=== PATIENT | male | born 1945 | race Caucasian/White ===

== ENCOUNTER 2017-01-12 13:41 | Emergency (ER) | payer MEDICARE ==
[~2017-01-12] VITALS: Ht 175.3 cm; Wt 120.0 kg
[2017-01-12 13:56] VITALS: BP 132/61; PULSE 69; RESP 17; TEMP 98.1; O2SAT 97
--- NOTE | 2017-01-12 14:53 | PD ---
HPI Chief Complaint: Syncope/Near-Syncope Time Seen by Provider: 14:51 Travel History International Travel<30 days: No Contact w/Intl Traveler<30days: No Traveled to known affect area: No History of Present Illness HPI Patient comes into the emergency department after having a near-syncopal episode. [place] he started having "black flashes" in front of his eyes. Patient states he eventually fell backwards and hit his head on the ground. Patient denies any loss of consciousness with this, chest pain, shortness of breath, headache, numbness or tingling anywhere, nausea, vomiting, fevers, loss of bowel or bladder, or pain anywhere. Patient denies any complaints currently. Patient reports he has something similar happen approximately 6-8 months ago. PFSH Past Medical History Hx Anticoagulant Therapy: Yes (baby aspirin) High Cholesterol: Yes Social History Tobacco Use: No Substance Use: No Allergies-Medications (Allergen,Severity, Reaction): Coded Allergies: No Known Allergies (Unverified , 01/12/17) Review of Systems Except as stated in HPI: all other systems reviewed are Neg Physical Exam Narrative GENERAL: Well-developed, overly nourished, in no acute distress, and non-ill appearing. SKIN: Focused skin assessment warm and dry. HEAD: Atraumatic. Normocephalic. EYES: Pupils equal and round. EOMI. No scleral icterus. No injection or drainage. ENT: No nasal bleeding or discharge. Mucous membranes pink and moist. NECK: Trachea midline. No JVD. Supple. No nuclear rigidity. CARDIOVASCULAR: Regular rate and rhythm. No murmur appreciated. RESPIRATORY: No accessory muscle use. No respiratory distress. Clear to auscultation. Breath sounds equal bilaterally. GASTROINTESTINAL: Abdomen soft, non-tender, nondistended. Hepatic and splenic margins not palpable. No pulsatile mass. MUSCULOSKELETAL: No obvious deformities. No clubbing. No cyanosis. No edema. Full range of motion. NEUROLOGICAL: Awake and alert. No obvious cranial nerve deficits. Motor grossly within normal limits. Normal speech. PSYCHIATRIC: Appropriate mood and affect; insight and judgment normal. Data Data Last Documented VS Vital Signs Date Time Temp Pulse Resp B/P Pulse Ox O2 Delivery O2 Flow Rate FiO2 01/12/17 15:56 18 98 Room Air 01/12/17 13:56 98.1 69 132/61 Orders Electrocardiogram (01/12/17 14:47) Complete Blood Count With Diff (01/12/17 14:47) Comprehensive Metabolic Panel (01/12/17 14:47) Ckmb (Isoenzyme) Profile (01/12/17 14:47) Troponin I (01/12/17 14:47) Act Partial Throm Time (Ptt) (01/12/17 14:47) Prothrombin Time / Inr (Pt) (01/12/17 14:47) Urinalysis - C+S If Indicated (01/12/17 14:47) Chest, Single Ap (01/12/17 14:47) Ct Brain W/O Iv Contrast(Rout) (01/12/17 14:47) Ct Cerv Spine W/O Contrast (01/12/17 14:47) Ecg Monitoring (01/12/17 14:47) Iv Access Insert/Monitor (01/12/17 14:47) Oximetry (01/12/17 14:47) Orthostatic Vital Signs (01/12/17 14:47) D-Dimer (01/12/17 16:34) Ct Pulmonary Angiogram (01/12/17 ) Labs Laboratory Tests Test 01/12/17 01/12/17 14:30 16:38 White Blood Count 7.3 TH/MM3 Red Blood Count 4.26 MIL/MM3 Hemoglobin 13.6 GM/DL Hematocrit 40.9 % Mean Corpuscular Volume 96.1 FL Mean Corpuscular Hemoglobin 31.9 PG Mean Corpuscular Hemoglobin 33.2 % Concent Red Cell Distribution Width 13.6 % Platelet Count 273 TH/MM3 Mean Platelet Volume 7.9 FL Neutrophils (%) (Auto) 57.3 % Lymphocytes (%) (Auto) 31.9 % Monocytes (%) (Auto) 9.1 % Eosinophils (%) (Auto) 1.4 % Basophils (%) (Auto) 0.3 % Neutrophils # (Auto) 4.2 TH/MM3 Lymphocytes # (Auto) 2.3 TH/MM3 Monocytes # (Auto) 0.7 TH/MM3 Eosinophils # (Auto) 0.1 TH/MM3 Basophils # (Auto) 0.0 TH/MM3 CBC Comment DIFF FINAL Differential Comment Prothrombin Time 10.5 SEC Prothromb Time International 1.0 RATIO Ratio Activated Partial 25.0 SEC Thromboplast Time D-Dimer Quantitative (PE/DVT) 2.30 MG/L FEU Sodium Level 142 MEQ/L Potassium Level 3.9 MEQ/L Chloride Level 108 MEQ/L Carbon Dioxide Level 22.8 MEQ/L Anion Gap 11 MEQ/L Blood Urea Nitrogen 12 MG/DL Creatinine 0.96 MG/DL Estimat Glomerular Filtration 77 ML/MIN Rate Random Glucose 73 MG/DL Calcium Level 8.4 MG/DL Total Bilirubin 0.5 MG/DL Aspartate Amino Transf 19 U/L (AST/SGOT) Alanine Aminotransferase 27 U/L (ALT/SGPT) Alkaline Phosphatase 64 U/L Total Creatine Kinase 83 U/L Troponin I LESS THAN 0.02 NG/ML Total Protein 6.5 GM/DL Albumin 3.3 GM/DL Urine Color YELLOW Urine Turbidity HAZY Urine pH 5.5 Urine Specific [place] 1.026 Urine Protein NEG mg/dL Urine Glucose (UA) NEG mg/dL Urine Ketones NEG mg/dL Urine Occult Blood NEG Urine Nitrite NEG Urine Bilirubin NEG Urine Urobilinogen LESS THAN 2.0 MG/DL Urine Leukocyte Esterase NEG Urine RBC LESS THAN 1 /hpf Urine WBC 3 /hpf Urine Squamous Epithelial 1 /hpf Cells Urine Mucus MANY /lpf Microscopic Urinalysis Comment CULT NOT INDICATED MDM Medical Decision Making Medical Screen Exam Complete: Yes Emergency Medical Condition: Yes Interpretation(s) EKG reviewed by Dr. Ramos shows normal sinus rhythm with ventricular rate of 68. No STEMI. Differential Diagnosis Syncope, near syncope, cranial hemorrhage, electrolyte abnormality, dehydration , acute coronary syndrome, other Narrative Course Patient presented with near syncope. There was no true syncope. The patient denied any symptoms of chest pain, SOB/difficulty breathing, palpitations or skipped heartbeats. The patient denied and headache. The patient denied any bloody or tarry stools. The patient has no significant risk factors and no significant co-morbidities. There was no evidence to suggest neurologic or cardiac etiology or GIB. The diagnosis and findings were discussed with the patient and the patient was instructed to follow up with their primary physician. Patient in no obvious distress upon re-evaluation. All pertinent laboratory/ Radiology result(s) discussed with patient/family including incidental finding of calcification of coronary arteries noted on CT. I discussed patient with Dr. Ramos, who saw and evaluated the patient and is in agreement with plan of care and disposition. Any questions/concerns in reference to patient diagnosis/ condition discussed and clarified prior to patient's discharge. Reinforced sheer importance of close follow up with patient's primary physician or primary care clinic. Instructed patient to return to ED immediately, if symptoms return/ worsen. Pt showed understanding of above instructions. Further instructions and recommendations were detailed in discharge paperwork. Pt ambulated without difficulty out of ED at discharge. Diagnosis Primary Impression: Near syncope Patient Instructions: General Instructions, Near Syncope (ED) Additional Instructions: Follow-up with your primary care physician as soon as possible for reevaluation. Drink plenty of non-caffeinated and nonalcoholic fluids. Return to the emergency department if symptoms get worse. Disposition: 01 DISCHARGE HOME Condition: Stable Yefri Chin Jan 12, 2017 14:53
[2017-01-12 15:09] LABS: AUTOMATED NEUTROPHIL # 4.2 TH/MM3 (1.8-7.7); BASOPHIL % 0.3 % (0.0-2.0); EOSINOPHIL # 0.1 TH/MM3 (0-0.4); EOSINOPHIL % 1.4 % (0.0-4.0); HEMATOCRIT 40.9 % (39.0-51.0); HEMO FLAGS DIFF FINAL; LYMPH % 31.9 % (9.0-44.0); LYMPHOCYTE # 2.3 TH/MM3 (1.0-4.8); MEAN CELL VOLUME 96.1 FL (80.0-100.0); MEAN CORPUSCULAR HEMOGLOBIN 31.9 PG (27.0-34.0); MEAN CORPUSCULAR HGB CONC 33.2 % (32.0-36.0); MONO % 9.1 % (0.0-8.0); NEUT % 57.3 % (16.0-70.0); PLATELET COUNT 273 TH/MM3 (150-450); RED BLOOD COUNT 4.26 MIL/MM3 (4.50-5.90); RED CELL DISTRIBUTION WIDTH 13.6 % (11.6-17.2); WHITE BLOOD COUNT 7.3 TH/MM3 (4.0-11.0)
[2017-01-12 15:24] LABS: ALT (GPT) 27 U/L (12-78); ANION GAP 11 MEQ/L (5-15); AST (GOT) 19 U/L (15-37); BICARBONATE 22.8 MEQ/L (21.0-32.0); BLOOD UREA NITROGEN 12 MG/DL (7-18); CHLORIDE 108 MEQ/L (98-107); GLOMERULAR FILTRATION RATE 77 ML/MIN (>89); POTASSIUM 3.9 MEQ/L (3.5-5.1); SODIUM (NA) 142 MEQ/L (136-145)
[2017-01-12 15:31] LABS: PROTHROMBIN TIME - PATIENT 10.5 SEC (9.8-11.6)
[2017-01-12 15:32] LABS: ALKALINE PHOSPHATASE 64 U/L (45-117); TOTAL BILIRUBIN ADULT 0.5 MG/DL (0.2-1.0)
[2017-01-12 15:34] LABS: CREATINE KINASE 83 U/L (39-308)
--- NOTE | 2017-01-12 16:03 | RADRPT ---
EXAM DATE/TIME: 01/12/2017 15:46 [facility] COMPARISON: No previous studies available for comparison. INDICATIONS : Near syncopal episode today with fall onto posterior head. RADIATION DOSE: 42.99 CTDIvol (mGy) MEDICAL HISTORY : None SURGICAL HISTORY : None. ENCOUNTER: Initial ACUITY: 1 day PAIN SCALE: 0/10 LOCATION: Bilateral head TECHNIQUE: Multiple contiguous axial images were obtained of the head. Using automated exposure control and adj ustment of the mA and/or kV according to patient size, radiation dose was kept as low as reasonably a chievable to obtain optimal diagnostic quality images. FINDINGS: CEREBRUM: The ventricles are normal for age. No evidence of midline shift, mass lesion, hemorrhage or acute in farction. No extra-axial fluid collections are seen. POSTERIOR FOSSA: The cerebellum and brainstem are intact. The 4th ventricle is midline. The cerebellopontine angle i s unremarkable. EXTRACRANIAL: The visualized portion of the orbits is intact. SKULL: The calvaria is intact. No evidence of skull fracture. CONCLUSION: No acute disease. Deandre Domínguez MD on January 12, 2017 at 16:01 Board Certified Radiologist. This report was verified electronically.
--- NOTE | 2017-01-12 16:07 | RADRPT ---
EXAM DATE/TIME: 01/12/2017 15:17 [facility] COMPARISON: No previous studies available for comparison. INDICATIONS : Syncope. MEDICAL HISTORY : None. SURGICAL HISTORY : None. ENCOUNTER: Initial ACUITY: 1 day PAIN SCORE: 0/10 LOCATION: Bilateral chest FINDINGS: The heart and mediastinal structures are normal. The pulmonary vascular pattern is also normal. The lungs are clear. CONCLUSION: 1. No acute cardiopulmonary disease. Deandre Domínguez MD on January 12, 2017 at 15:58 Board Certified Radiologist. This report was verified electronically.
--- NOTE | 2017-01-12 16:20 | RADRPT ---
EXAM DATE/TIME: 01/12/2017 15:46 [facility] COMPARISON: No previous studies available for comparison. INDICATIONS : Near syncopal episode today with fall onto posterior head. RADIATION DOSE: 47.18 CTDIvol (mGy) MEDICAL HISTORY : None SURGICAL HISTORY : None. ENCOUNTER: Initial ACUITY: 1 day PAIN SCALE: 0/10 LOCATION: Bilateral neck TECHNIQUE: Volumetric scanning of the cervical spine was performed. Multiplanar reconstructions in the sagittal, coronal and oblique axial planes were performed. Using automated exposure control and adjustment o f the mA and/or kV according to patient size, radiation dose was kept as low as reasonably achievable to obtain optimal diagnostic quality images. FINDINGS: There is cervical spondylosis from C3 through C7 with disc space narrowing as well as anterior and po sterior osteophytic spurring at all levels. There is no acute fracture or prevertebral soft tissue s welling. There is straightening of the normal cervical lordosis. The bony relationship and alignmen t between C1 and C2 is well maintained. Mild scoliosis of the cervical spine is noted. Moderate lef t neural foraminal narrowing is noted at C6-7 and moderate right neural foraminal narrowing is noted at C4-5 with mild bilateral foraminal narrowing at C3-4 and C5-6 as well as mild left neural foramina l narrowing at C4-5. No spinal stenosis is noted. CONCLUSION: 1. No acute fracture or prevertebral soft tissue swelling. 2. Cervical spondylosis from C3 through C7. 3. Moderate right neural foraminal narrowing at C4-5 and left neural foraminal narrowing at C6-7 as w ell as mild bilateral foraminal narrowing at C3-4 and C5-6 and mild left neural foraminal narrowing a t C4-5. 4. Scoliosis of the cervical spine. Deandre Domínguez MD on January 12, 2017 at 16:09 Board Certified Radiologist. This report was verified electronically.
[2017-01-12 17:26] LABS: BLOOD, URINE NEG (NEG); COMMENT (UR) CULT NOT INDICATED; CULTURE IF INDICATED CULT NOT INDICATED; GLUCOSE,URINE NEG (NEG); KETONE, URINE NEG (NEG); MUCUS URINE MANY /lpf (OCC); NITRITE,URINE NEG (NEG); PH, URINE 5.5 (5.0-8.5); SQUAMOUS EPITHELIAL CELL URINE 1 /hpf (0-5); URINE COLOR YELLOW (YELLW/STRAW)
[2017-01-12] MEDS ORDERED: IOHEXOL 350 MG/ML 10 ML VIAL (for RAD DIAG) IV ONE (17:55)
--- NOTE | 2017-01-12 18:13 | RADRPT ---
EXAM DATE/TIME: 01/12/2017 17:55 [facility] COMPARISON: No previous studies available for comparison. INDICATIONS : Shortness of breath. IV CONTRAST: 75 cc Omnipaque 350 (iohexol) IV RADIATION DOSE: 23.47 CTDIvol (mGy) MEDICAL HISTORY : None SURGICAL HISTORY : Back surgery x 2. ENCOUNTER: Initial ACUITY: 1 day PAIN SCALE: 4/10 LOCATION: Bilateral chest TECHNIQUE: Volumetric scanning of the chest was performed using a pulmonary embolism protocol MIP images were re constructed. Using automated exposure control and adjustment of the mA and/or kV according to patien t size, radiation dose was kept as low as reasonably achievable to obtain optimal diagnostic quality images. FINDINGS: No evidence of pulmonary embolus. Normal heart size. There is coronary artery calcification noted, ma inly left-sided. No pericardial or pleural effusion. Trace atelectasis seen of the visualized lung bases. No infiltrate, effusion or pneumothorax. There is no mediastinal, hilar or axillary lymphadenopathy. CONCLUSION: * No pulmonary embolus. * Trace atelectasis of both lung bases. * Coronary artery calcification. Ricardo Allen MD on January 12, 2017 at 18:10 Board Certified Radiologist. This report was verified electronically.
--- NOTE | 2017-01-12 19:33 | EKG ---
Date Performed: 01/12/2017 Time Performed: 14:12:43 PTAGE: 71 years EKG: Sinus rhythm WITH FIRST DEGREE AV BLOCK MODERATE INTRAVENTRICULAR CONDUCTION DELAY ABNORMAL ECG INTERPRETATION BA SED ON A DEFAULT AGE OF 41 YEARS NO PREVIOUS TRACING DOCTOR: Vega Franco Interpretating Date/Time 01/12/2017 19:33:02
== END 2017-01-12 18:45 | disposition home or self-care (01) ==
LOC: NEDAMB 13:41
DX: R55 Syncope and collapse (principal); E78.00 Pure hypercholesterolemia, unspecified; R94.31 Abnormal electrocardiogram [ECG] [EKG]
CPT/HCPCS: 70450; 71010; 71275; 72125; 80053; 81001; 82550; 84484; 85025; 85379; 85610; 85730; 93005; 99285; Q9967